=== PATIENT | female | born 1995 | race Two or more races ===

== ENCOUNTER 2020-11-07 00:26 | Inpatient (IN) | payer OTHER ==
[~2020-11-07] VITALS: Ht 149.9 cm; Wt 88.9 kg
[2020-11-07] MEDS ORDERED: PRENATAL TABLE1 EAC1 PO (01:55)
[2020-11-08] MEDS ORDERED: NAPROXEN500 MG PO (08:39)
== END 2020-11-08 10:08 | disposition home or self-care (01) | DRG 770 ==
LOC: LDR 00:26 → SURG-SUITE 00:26 → LDR 01:50 → O/R 22:52 → OB/GYN 23:41 → O/R 23:57 → SURG-SUITE 11-08 00:12
PROVIDERS: ADMIT Obstetrics & Gynecology; ATTEND Obstetrics & Gynecology
PROC: BY49ZZZ Ultrasonography of First Trimester, Single Fetus (ICD-10-PCS; 2020-11-07)
PROC: 10D17ZZ Extraction of Products of Conception, Retained, Via Natural or Artificial Opening (ICD-10-PCS; principal; 2020-11-07 13:30)
DX: O03.4 Incomplete spontaneous abortion without complication (principal); O42.911 Preterm premature rupture of membranes, unspecified as to length of time between rupture and onset of labor, first trimester; Z3A.18 18 weeks gestation of pregnancy; Z20.822 Contact with and (suspected) exposure to COVID-19

== ENCOUNTER 2023-07-01 16:15 | Outpatient (CLI) | payer OTHER ==
[~2023-07-01 16:15] MED LIST: NAPROXEN500 MG PO; PRENATAL TABLE1 EAC1 PO
== END 2023-07-01 17:35 | disposition home or self-care (01) ==
LOC: NST 16:15
PROVIDERS: ATTEND Obstetrics & Gynecology
DX: Z34.82 Encounter for supervision of other normal pregnancy, second trimester (principal)

== ENCOUNTER 2023-07-31 17:09 | Outpatient (CLI) | payer OTHER | END 2023-07-31 18:00 | disposition home or self-care (01) | LOC: NST 17:09 | PROVIDERS: ATTEND Obstetrics & Gynecology Gynecology | DX: Z34.83 Encounter for supervision of other normal pregnancy, third trimester (principal) ==